=== PATIENT | female | born 1985 | race Caucasian/White ===

== ENCOUNTER 2023-06-16 08:51 | Observation (INO) ==
--- OUTSIDE RECORDS SUMMARY | 2023-06-16 08:56 | External Medical Summary | Continuity of Care Document ---
Author Name Unknown Organization [facility] [address] Address [address] [place], [place] [id number] Care Team Providers Care Compatibility Test Engineer Name Role Phone Eloise Dior Primary Care Physician [phone] [id number] Date[facility]s): 06/11/23 - 06/11/23 [facility] [address], [address] [place] [address] [phone] Encounter Diagnosis Palpitation(Discharge Diagnosis) - 06/11/23 Discharge Disposition: Home or Self Care Attending Physician: MD Bright Dongsheng Allergies, Adverse Reactions, Alerts Substance Reaction Severity Status Bactrim rash Active Immunizations Given and Recorded Vaccine Date Status Refusal Reason influenza virus vaccine, inactivated 12/30/13 Christopher rded tetanus/diphtheria/pertuss, acel (Tdap) 09/25/10 R ecorded tetanus/diphtheria/pertuss, acel (Tdap) 07/17/05 R ecorded tetanus toxoids-diphtheria, Td (Adult) 06/08/99 Re corded hepatitis B adult vaccine 11/18/97 Recorded hepatitis B adult vaccine 06/09/97 Recorded hepatitis B adult vaccine 05/12/97 Recorded measles/mumps/rubella virus vaccine 05/12/97 Recor ded measles/mumps/rubella virus vaccine 01/27/85 Recor ded poliovirus vaccine, inactivated 10/31/88 Recorded poliovirus vaccine, inactivated 05/25/85 Recorded poliovirus vaccine, inactivated 03/03/84 Recorded poliovirus vaccine, inactivated 01/01/84 Recorded diphtheria/tetanus/pertuss, acel (DTaP) 10/31/88 R ecorded diphtheria/tetanus/pertuss, acel (DTaP) 09/07/85 R ecorded haemophilus b Vaccine Unspecified 04/26/86 Recorde d diphtheria/pertussis, whole cell/tetanus 08/25/84 Recorded diphtheria/pertussis, whole cell/tetanus 05/06/84 Recorded diphtheria/pertussis, whole cell/tetanus 03/03/84 Recorded Medications Ortho Tri-Cyclen Start: 06/03/19 15:49:00 EDT Start Date: 06/03/19 Status: Ordered valACYclovir 1 g oral tablet Start: 12/11/22 13:38:00 EDT, See Instructions, Disp# 20 tab, Refills: 2, TAKE 2 TABLETS BY MOUTH EVERY 12 HOURS FOR 1 DAY DIRECTED, Pharmacy: [id number] Start Date: 12/11/22 Status: Ordered Problem List Condition Confirmation Course Effective Dates Status Health St atus Informant Herpes simplex labialis Confirmed Active Diagnosis Diagnosis Type Effective Dates Health Status Clini rafi Service Informant Palpitation Discharge Diagnosis 06/11/23 Non-Specified Procedures Procedure Date Related Diagnosis Body Site Status US kidneys 1 03/30/14 Completed wisdom teeth 2005 Completed appendectomy, laparscopic 2001 Completed 1Normal Social History Social History Type Response Tobacco Former smoker, Cigar ettes, .3 per day. 2 year(s). Started age 13 Years. Stopped age 15 Years. Smoking Status Never smoked cigaret guanaco Sex Patient Care team information Care Team Personnel Name: DO Dior Alonna Paige Position: Resident Member Role: Primary Care Provider Address: Address: [address] [facility] [address] [place] [address] Care Team Related Persons Name: BRITTANIE HENNING Address: home [address], [place] [id number] Name: BRITTANIE HENNING Address: [facility] Address: home [address], [place] [id number]
[2023-06-16] MEDS: SODIUM CHLORIDE 0.9% 500 ML IV STA (09:17)
--- NOTE | 2023-06-16 09:21 | Emergency Department Note ---
Impression & Plan Palpitations, Tachycardia, Prolonged QT interval ED Provider Note NAME: RANJAN HENNING AGE: 37 SEX: F : 1985 ARRIVES VIA: Walk-In INFORMANT: [Patient] ED PROVIDER(S): [Gabino Marquis MD] CHIEF COMPLAINT: Chest pain HISTORY OF PRESENT ILLNESS: The patient is a 37-year-old female who states this is her third visit for palpitations. She was seen first in [place] and then in this ER a week ago. She has worn a Holter monitor and has an appointment in 3 days to have her results explained. The patient states that today, about 3 hours ago, she noticed her heart was racing. The sensation would come and go. She has noticed some heaviness to her chest at times, no shortness of breath. No syncope. Because of the persistent symptoms today, because of the chest heaviness, she presents for evaluation. PMHx/PSHx/Social Hx: See Below PHYSICAL EXAM: GENERAL: Patient is in no acute distress. HEENT: No acute trauma, normocephalic atraumatic, mucous membranes moist, no nasal congestion. NECK: No stridor, no adenopathy, no meningismus, trachea is midline. LUNGS: Clear to auscultation bilaterally, no wheeze, no rhonchi, breath sounds equal. HEART: Subtle systolic murmur, mildly tachycardic, regular rhythm. ABDOMEN: Soft, nontender, no peritonitis. EXTREMITIES: No cyanosis, full range of motion of all the joints without pain or difficulty. NEUROLOGIC: Oriented x 3, no acute motor or sensory deficits, no focal weakness. SKIN: No jaundice, no diaphoresis. DIFFERENTIAL DIAGNOSIS: SVT, A-fib or a flutter, V. tach, thyroid disorder, electrolyte imbalance, PE, among others. EMERGENCY DEPARTMENT PROCEDURES: MEDICAL DECISION MAKING: There is no leukocytosis or worrisome anemia. There is a normal platelet count. No renal failure or significant electrolyte abnormality. No concerning liver enzyme elevation. No evidence for pancreatitis. Patient appears to be in a euthyroid state. testing was negative. ECG showed a sinus rhythm, no ischemia or dysrhythmia. QTc was read as prolonged at 689. Cardiac enzyme testing x 1 was not consistent with acute cardiac injury. Chest x-ray did not show mediastinal widening, pneumonia or pneumothorax. Chest CT did not show pneumonia or PE. During the patient stay, she was at times tachycardic although the rhythm was sinus. No dysrhythmia noted on the monitor. The patient did receive 500 cc of IV saline for hydration. She was given IV magnesium to boost this value. I discussed the case with cardiology, monitoring in the hospital was felt warranted/reasonable given her persistent symptoms and the potential prolonged QT interval on ECG. I did speak with the patient and case management, the on-call hospitalist was consulted. Prior/Outside records/notes reviewed: ED visit note from 06/09/2023 discussing her presentation, results and the plan moving forward. ECG per my interpretation: Indication was palpitations. The ECG shows a normal sinus rhythm with a rate of 98. The QTc was prolonged at 689. There was diffuse nonspecific ST change. No ST elevation. No PVCs. Continuous Cardiac Monitoring per my interpretation: An order was placed for continuous cardiac monitoring. The monitor shows a rate of 107 with sinus tachycardia. Imaging/x-ray results per my interpretation: Chest x-ray does not show mediastinal widening, pneumonia or pneumothorax. Chronic Medical/Social conditions affecting care: Care/Management discussed with: Cardiology-Dr. Dumont. Case management and the on-call hospitalist. Level of care consideration(s): After review of the information above and other included data: --I believe the patient requires escalation of care to admission DISPOSITION: Admission Past Med/Surg History Medical History Palpitations Social History Smoking Status: Never smoker Preferred Language: Indonesian Feels Safe at Home: Yes Allergies Allergies Allergy/AdvReac Type Severity Reaction Status Date / Time sulfamethoxazole Allergy Intermediate Unknown Unverified 06/09/23 10:46 [From Bactrim] trimethoprim [From Bactrim] Allergy Intermediate Unknown Unverified 06/09/23 10:46 Home Meds Home Medications Medication Instructions Recorded Confirmed norgestimate-ethinyl estradiol 1 tab PO HS 06/09/23 06/16/23 0.18 mg/0.215mg/0.25mg-35 mcg(28)tablet Results & Data (ED) Vital Signs Vital Signs - 24 hr 06/16/23 08:51 06/16/23 08:51 06/16/23 08:51 Temperature 36.9 C Temperature Source Temporal Artery Scan Pulse Rate 85 Pulse Rate from SpO2 Sensor Respiratory Rate 18 18 Blood Pressure 133/90 Blood Pressure Mean 104 Pulse Oximetry 99 Oxygen Delivery Method Room Air Sepsis Recent Fever Within 48 Hours No Sepsis New/Unexplained Change in Mental Status N/A Sepsis Action Taken by Nursing No Action Required 06/16/23 09:02 06/16/23 09:22 06/16/23 09:24 Temperature Temperature Source Pulse Rate 87 76 76 Pulse Rate from SpO2 Sensor 75 Respiratory Rate 16 22 Blood Pressure Blood Pressure Mean Pulse Oximetry 96 99 Oxygen Delivery Method Sepsis Recent Fever Within 48 Hours Sepsis New/Unexplained Change in Mental Status Sepsis Action Taken by Nursing 06/16/23 09:30 06/16/23 09:40 06/16/23 09:50 Temperature Temperature Source Pulse Rate 76 74 66 Pulse Rate from SpO2 Sensor 74 74 67 Respiratory Rate 22 16 16 Blood Pressure Blood Pressure Mean Pulse Oximetry 100 100 100 Oxygen Delivery Method Sepsis Recent Fever Within 48 Hours Sepsis New/Unexplained Change in Mental Status Sepsis Action Taken by Nursing 06/16/23 10:00 06/16/23 10:30 06/16/23 10:40 Temperature Temperature Source Pulse Rate 67 64 60 Pulse Rate from SpO2 Sensor 67 65 60 Respiratory Rate 13 13 14 Blood Pressure Blood Pressure Mean Pulse Oximetry 100 100 100 Oxygen Delivery Method Sepsis Recent Fever Within 48 Hours Sepsis New/Unexplained Change in Mental Status Sepsis Action Taken by Nursing 06/16/23 10:50 06/16/23 11:00 Temperature Temperature Source Pulse Rate 65 65 Pulse Rate from SpO2 Sensor 64 64 Respiratory Rate 20 17 Blood Pressure Blood Pressure Mean Pulse Oximetry 100 100 Oxygen Delivery Method Sepsis Recent Fever Within 48 Hours Sepsis New/Unexplained Change in Mental Status Sepsis Action Taken by [facility] Medications Current Medication List: was personally reviewed by me Laboratory Data Attestation: I reviewed the patient's lab results. 06/16/23 09:15 06/16/23 09:15 Lab Results 06/16/23 Range/Units 09:15 WBC 9.86 (4.8-10.8) K/ul RBC 5.13 (4.20-5.40) M/uL Hgb 14.5 (12.0-16.0) g/dl Hct 43.8 (37.0-47.0) % MCV 85.4 (80.0-100.0) fL MCH 28.3 (25.0-34.0) pg MCHC 33.1 (32.0-36.0) g/dL RDW Std Deviation 35.6 L (36.4-46.3) fL RDW Coeff of Arin 11.5 (11.5-14.5) % Plt Count 265 (130-400) K/uL MPV 10.5 (9.4-12.4) fL Immature Gran % (Auto) 0.2 % Neut % (Auto) 74.4 % Lymph % (Auto) 19.9 % Woodson % (Auto) 4.8 % Eos % (Auto) 0.4 % Baso % (Auto) 0.3 % Neut # (Auto) 7.34 H (1.40-6.50) K/uL Lymph # (Auto) 1.96 (1.20-3.40) K/uL Woodson # (Auto) 0.47 (0.11-0.59) K/uL Eos # (Auto) 0.04 (0.00-0.50) K/uL Baso # (Auto) 0.03 (0.00-0.20) K/uL Immature Gran # (Auto) 0.02 (0.01-0.20) K/uL Sodium 136 (136-145) mmol/L Potassium 3.7 (3.5-5.1) mmol/L Chloride 104 (98-107) mmol/L Carbon Dioxide 26 (21-32) mmol/L Anion Gap 6 (3-11) BUN 11 (6-23) mg/dl Creatinine 0.69 (0.6-1.2) mg/dl Est Cr Clr Drug Dosing 94.5 ml/min Est GFR ( Amer) 127.1 ml/min Est GFR (Non-Af Amer) 109.7 ml/min BUN/Creatinine Ratio 15.9 (10-20) Glucose 131 H (70-99(Fasting)) mg/dl Calcium 9.5 (8.6-10.3) mg/dl Magnesium 1.8 (1.7-2.4) mg/dl Total Bilirubin 0.5 (0.2-1.0) mg/dl AST 11 L (13-39) U/L ALT 10 (7-52) U/L Alkaline Phosphatase 43 (34-104) U/L Troponin I High Sens 3.6 (0-14) pg/ml Total Protein 7.7 (6.0-8.3) gm/dl Albumin 4.5 (3.4-5.0) gm/dl Globulin 3.2 (2.5-4.0) gm/dl Albumin/Globulin Ratio 1.4 (0.9-2) Lipase 17 (11-82) U/L TSH 1.717 (0.300-4.500) uIu/ml HCG, Qual Negative (Negative) Administered Medications Magnesium Sulfate/Dextrose (Magnesium Sulfate / D5w) 1 gm in 100 mls @ 50 mls/hr IV Q2H ROBERT Stop: 06/16/23 15:44 Last Admin: 06/16/23 14:46 Dose: 50 mls/hr Documented By: Infusion: 06/16/23 14:40 Dose: Infused Documented By: Admin: 06/16/23 13:09 Dose: 50 mls/hr Documented By: AIDE Discontinued Medications Sodium Chloride (Nss) 500 mls @ 999 mls/hr IV .Q31M STA Stop: 06/16/23 09:32 Last Infusion: 06/16/23 09:48 Dose: Infused Documented By: Admin: 06/16/23 09:17 Dose: 999 mls/hr Documented By: PHYLLIS Magnesium Sulfate/Dextrose (Magnesium Sulfate / D5w) 1 gm in 100 mls @ 100 mls/hr IV NOW STA Stop: 06/16/23 11:00 Last Infusion: 06/16/23 11:51 Dose: Infused Documented By: Admin: 06/16/23 10:37 Dose: 100 mls/hr Documented By: ABBY Ioversol (Optiray 320 125ml) 58 ml IV ONCE ONE Stop: 06/16/23 10:18 Last Admin: 06/16/23 10:18 Dose: 58 ml Documented By: SAMUEL Potassium Chloride (Potassium Chloride Crtab 20 Meq Tabcr) 40 meq PO NOW STA Stop: 06/16/23 11:38 Last Admin: 06/16/23 13:09 Dose: 40 meq Documented By: AIDE Imaging Data Radiologist's Impression: Chest X-Ray 06/16/23 09:02 SINGLE VIEW CHEST CLINICAL HISTORY: Atypical chest pain FINDINGS: An AP, portable, upright chest radiograph is compared to study dated 06/09/2023. The cardiomediastinal silhouette is unremarkable. The lungs and pleural spaces are clear. No pneumothorax is seen. The bony thorax is grossly intact. IMPRESSION: No active disease in the chest. ACT 112: Negative or not required by law. Electronically signed by: Gabino Hargrove M.D. 06/16/2023 9:30 AM Chest CTA 06/16/23 09:15 CT ANGIOGRAM OF THE CHEST CLINICAL HISTORY: Atypical chest pain. COMPARISON STUDY: Chest x-ray dated 06/16/2023. TECHNIQUE: Following the IV administration of 58 cc of Optiray 320, CT angiogram of the chest was performed from the upper abdomen to the thoracic inlet utilizing the pulmonary embolus protocol. Images are reviewed in the axial, sagittal, and coronal planes. 3-D MIPS images are created and assessed. IV contrast was administered without complication. A dose lowering technique was utilized adhering to the principles of ALARA. CT DOSE: 414.37 mGy.cm FINDINGS: Thyroid: Imaged portions of the thyroid gland are normal in size and attenuation. Thoracic aorta: The thoracic aorta is normal in caliber and demonstrates standard 3-vessel arch anatomy. No dissection is seen. Pulmonary vasculature: The pulmonary trunk is normal in caliber. There are no filling defects identified in main, lobar, or segmental pulmonary branches to suggest pulmonary embolus. Heart: The heart is normal in size and without pericardial effusion. Lungs and pleural spaces: There is no airspace consolidation or pleural effusion. The trachea and central airways are clear. A low suspicion 4 mm pleural-based nodule is seen in the right lower lobe lung fissure on image #85. This is Doppler sonograms. Mediastinum: There is no mediastinal lymphadenopathy. Chanelle: Clear. Axillae: There is no axillary lymphadenopathy. Upper abdomen: Partially visualized upper abdominal viscera is within normal limits. Skeletal structures: No lytic or blastic bony lesions are seen. IMPRESSION: 1. There is no evidence of pulmonary embolus in the main, lobar, or segmental pulmonary arteries. 2. The lungs are clear. ACT 112: Negative or not required by law. Electronically signed by: Gabino Hargrove M.D. 06/16/2023 10:31 AM Discharge Plan Visit Data Chief Complaint: Chest Pain Stated Complaint: RAPID HEART RATE,TIGHTNESS OF CHEST ED Provider: Gabino Marquis Discharge Problem: Palpitations, Tachycardia, Prolonged QT interval Patient Disposition: Admitted As Inpatient Condition: Good Discharge Instructions Interventions: ED Discharge Assessment Last Done: 06/16/23 15:05
--- NOTE | 2023-06-16 09:31 | XRay Report ---
SINGLE VIEW CHEST CLINICAL HISTORY: Atypical chest pain FINDINGS: An AP, portable, upright chest radiograph is compared to study dated 06/09/2023. The cardiom ediastinal silhouette is unremarkable. The lungs and pleural spaces are clear. No pneumothorax is see n. The bony thorax is grossly intact. IMPRESSION: No active disease in the chest. ACT 112: Negative or not required by law. Electronically signed by: Gabino Hargrove M.D. 06/16/2023 9:30 AM
[2023-06-16 09:37] LABS: Basophils # (auto) 0.03 K/uL (0.00-0.20); Basophils % (auto) 0.3 %; Eosinophils # (auto) 0.04 K/uL (0.00-0.50); Eosinophils % (auto) 0.4 %; Hematocrit (blood only) 43.8 % (37.0-47.0); Hemoglobin 14.5 g/dl (12.0-16.0); Immature Granulocytes # (auto) 0.02 K/uL (0.01-0.20); Immature Granulocytes % (auto) 0.2 %; Lymphocytes # (auto) 1.96 K/uL (1.20-3.40); Lymphocytes % (auto) 19.9 %; Mean Corpuscular Hemoglobin 28.3 pg (25.0-34.0); Mean Corpuscular Hgb Conc 33.1 g/dL (32.0-36.0); Mean Corpuscular Volume 85.4 fL (80.0-100.0); Mean Platelet Volume 10.5 fL (9.4-12.4); Monocytes # (auto) 0.47 K/uL (0.11-0.59); Monocytes % (auto) 4.8 %; Neutrophils # (auto) 7.34 K/uL (1.40-6.50); Neutrophils % (auto) 74.4 %; Platelet Count 265 K/uL (130-400); RDW Coefficient of Variation 11.5 % (11.5-14.5); RDW Standard Deviation 35.6 fL (36.4-46.3); Red Blood Count 5.13 M/uL (4.20-5.40); White Blood Count 9.86 K/ul (4.8-10.8)
[2023-06-16 09:55] LABS: Albumin Globulin Ratio 1.4 (0.9-2); Albumin Level 4.5 gm/dl (3.4-5.0); BUN Creatinine Ratio 15.9 (10-20); Bilirubin,Total 0.5 mg/dl (0.2-1.0); Calcium 9.5 mg/dl (8.6-10.3); Creatinine Clr Calc Pharmacy 94.5 ml/min; Est GFR (African American) 127.1 ml/min; Est GFR (Non-African American) 109.7 ml/min; Globulin 3.2 gm/dl (2.5-4.0); Magnesium 1.8 mg/dl (1.7-2.4); Potassium 3.7 mmol/L (3.5-5.1); Total Protein 7.7 gm/dl (6.0-8.3)
[2023-06-16 10:01] LABS: Troponin I High Sensitivity 3.6 pg/ml (0-14)
[2023-06-16 10:11] LABS: Pregnancy Test, Serum Negative (Negative); Thyroid Stimulating Hormone 1.717 uIu/ml (0.300-4.500)
[2023-06-16] MEDS: OPTIRAY 320 125ml IV ONE (10:18)
--- NOTE | 2023-06-16 10:33 | CT Scan Report ---
CT ANGIOGRAM OF THE CHEST CLINICAL HISTORY: Atypical chest pain. COMPARISON STUDY: Chest x-ray dated 06/16/2023. TECHNIQUE: Following the IV administration of 58 cc of Optiray 320, CT angiogram of the chest was per formed from the upper abdomen to the thoracic inlet utilizing the pulmonary embolus protocol. Images are reviewed in the axial, sagittal, and coronal planes. 3-D MIPS images are created and assessed. IV contrast was administered without complication. A dose lowering technique was utilized adhering to the principles of ALARA. CT DOSE: 414.37 mGy.cm FINDINGS: Thyroid: Imaged portions of the thyroid gland are normal in size and attenuation. Thoracic aorta: The thoracic aorta is normal in caliber and demonstrates standard 3-vessel arch anato my. No dissection is seen. Pulmonary vasculature: The pulmonary trunk is normal in caliber. There are no filling defects identif ied in main, lobar, or segmental pulmonary branches to suggest pulmonary embolus. Heart: The heart is normal in size and without pericardial effusion. Lungs and pleural spaces: There is no airspace consolidation or pleural effusion. The trachea and annika tral airways are clear. A low suspicion 4 mm pleural-based nodule is seen in the right lower lobe brandon g fissure on image #85. This is Doppler sonograms. Mediastinum: There is no mediastinal lymphadenopathy. Chanelle: Clear. Axillae: There is no axillary lymphadenopathy. Upper abdomen: Partially visualized upper abdominal viscera is within normal limits. Skeletal structures: No lytic or blastic bony lesions are seen. IMPRESSION: 1. There is no evidence of pulmonary embolus in the main, lobar, or segmental pulmonary arteries. 2. The lungs are clear. ACT 112: Negative or not required by law. Electronically signed by: Gabino Hargrove M.D. 06/16/2023 10:31 AM
[2023-06-16] MEDS: MAGNESIUM SULFATE / D5W 1 GM/100 ML BAG IV STA (10:37)
--- NOTE | 2023-06-16 11:41 | History & Physical Report ---
Date of Service June 16, 2023 Assessment & Plan (1) Palpitations: Plan: -Admit to the PCU on tele -Currently stable and asymptomatic -Presented after having further episodes of palpitations this am upon waking with associated chest tightness -Has been occure intermittently over the past 3 weeks -Did just have a holter monitor over approximately 48 hours this past week >Does think she had at least one episode of palpitations with the monitor in place -State that she returned the Holter monitor on 06/12, has not received results -First [facility]iology appointment is not until July 16 -Does not drink excessive amounts of caffeine, denies the patient cons istently snoring at night or having episodes of apnea -Her workup thus far has been significant for low-normal mag and potassium levels -ECG today shows t-wave inversions in the anterior leads and possible QTc prolongation -Chest xray and CTA of the chest were negative for acute findings -Will continue to monitor on tele -Will replete mag to at least 2.0 and Potassium to at least 4.0 -Will obtain TTE for further assessment with her murmur on exam -Cardiology consulted -Regular diet -SCD's for DVT PPX -AM CBC, BMP, mag Plan The patient was discussed with Dr. Mota at the time of the admission History of Present Illness Chief Complaint: chest pain Primary Care Provider: DO Megan Pathak Adrien is a 37 year old female with a PMH significant for heart palpitations who presented to the [facility] ED on 06/16/23 with complaints of recurrent heart palpations and chest tightness. She remained stable while in the ED. Labs were significant for a mag of 1.8, potassium of 3.7, TSH and high sen trop WNL. Chest xray and CT angiogram of the chest were negative for acute findings. Compared to previous ECG's, the patient's ECG today shows a QTc of 689 with new T-wave inversions in the anterior leads. The ED spoke with [facility] who recommended the patient be monitoring on tele overnight for possible runs of torsades. The patient has been followed by [facility] for her recurrent palpitations. She had a holter monitor last week, which she turned back into the Cardiology office but has yet to receive results. Prior to admission the patient was given 500 mL NSS and 1gm IV mag-sulfate. At the time of the exam the patient was sitting in bed in no acute distress with her bedside. Has been experiencing intermittent episodes of heart palpitations over the past 3 weeks, denies a previous history of cardiac disease or abnormalities. States the first occurrence was when they were on Vacation. She states she did have some alcoholic drinks which contained energy drinks. She states, and her confirms that she does not usually drink energy drinks or consumes caffeine regularly. She may have 8 oz of coffee in the morning, she denies using any workup supplements. She does take OTC supplements for her joints. These episodes normally occur when she first wakes in the am, before getting out of bed. She does not typically experience these episodes during exertion and denies symptoms such as lightheadedness, dizziness, chest pain, or syncope. Please refer to Dr. Mota's attestation for any changes to the treatment plan Allergies Allergy/AdvReac Type Severity Reaction Status Date / Time sulfamethoxazole Allergy Intermediate Unknown Unverified 06/09/23 10:46 [From Bactrim] trimethoprim [From Bactrim] Allergy Intermediate Unknown Unverified 06/09/23 10:46 Home Medications Medication Instructions Recorded Confirmed Type norgestimate-ethinyl estradiol 1 tab PO HS 06/09/23 06/16/23 History 0.18 mg/0.215mg/0.25mg-35 mcg(28)tablet Past Med/Surg History Social History Smoking Status: Never smoker Preferred Language: Macedonian Feels Safe at Home: Yes Physical Exam Physical Exam: Physical Exam: General: In no acute distress, stated age, well-nourished, good hygiene HEENT: Normocephalic, atraumatic, no scleral icterus, pupils around round, symmetrical, and reactive to light, moist mucus membranes, trachea midline, no thyromegaly Chest/Pulm: No respiratory distress, symmetrical chest expansion, clear breath sounds throughout Cardiac: RRR, 2/6 systolic murmur noted in the right and left upper sternal borders Abdomen: Negative for ascites and bruising, normoactive bowel sounds, soft, non-tender to palpation throughout Musculoskeletal: Symmetrical and without signs of acute trauma, upper and lower extremities with full ROM, no atrophy, spasticity, or flaccidity Extremities: Radial, dorsalis pedis, and posterior tibial pulses are intact and symmetrical, no edema noted in the BL LE's Skin: Warm, dry, no rashes , lesions, or scars noted Neuro: Alert and oriented to person, place, month, year, and president, no focal defects, no tremors noted Psych: No acute distress, calm and cooperative during the exam Results & Data Results & Data Vital Signs (Past 12 Hours) Vital Signs Temp Pulse Resp BP Pulse Ox O2 Del Method 06/16/23 09:24 76 06/16/23 09:02 87 16 96 06/16/23 08:51 18 06/16/23 08:51 Room Air 06/16/23 08:51 36.9 C 85 18 133/90 99 Laboratory Results Abnormal lab results 06/16/23 Range/Units 09:15 RDW Std Deviation 35.6 L (36.4-46.3) fL Neut # (Auto) 7.34 H (1.40-6.50) K/uL Glucose 131 H (70-99(Fasting)) mg/dl AST 11 L (13-39) U/L Diagnostic Findings Chest X-Ray 06/16/23 09:02 SINGLE VIEW CHEST CLINICAL HISTORY: Atypical chest pain FINDINGS: An AP, portable, upright chest radiograph is compared to study dated 06/09/2023. The cardiomediastinal silhouette is unremarkable. The lungs and pleural spaces are clear. No pneumothorax is seen. The bony thorax is grossly intact. IMPRESSION: No active disease in the chest. ACT 112: Negative or not required by law. Electronically signed by: Gabino Hargrove M.D. 06/16/2023 9:30 AM Chest CTA 06/16/23 09:15 CT ANGIOGRAM OF THE CHEST CLINICAL HISTORY: Atypical chest pain. COMPARISON STUDY: Chest x-ray dated 06/16/2023. TECHNIQUE: Following the IV administration of 58 cc of Optiray 320, CT angiogram of the chest was performed from the upper abdomen to the thoracic inlet utilizing the pulmonary embolus protocol. Images are reviewed in the axial, sagittal, and coronal planes. 3-D MIPS images are created and assessed. IV contrast was administered without complication. A dose lowering technique was utilized adhering to the principles of ALARA. CT DOSE: 414.37 mGy.cm FINDINGS: Thyroid: Imaged portions of the thyroid gland are normal in size and attenuation. Thoracic aorta: The thoracic aorta is normal in caliber and demonstrates standard 3-vessel arch anatomy. No dissection is seen. Pulmonary vasculature: The pulmonary trunk is normal in caliber. There are no filling defects identified in main, lobar, or segmental pulmonary branches to suggest pulmonary embolus. Heart: The heart is normal in size and without pericardial effusion. Lungs and pleural spaces: There is no airspace consolidation or pleural effusion. The trachea and central airways are clear. A low suspicion 4 mm pleural-based nodule is seen in the right lower lobe lung fissure on image #85. This is Doppler sonograms. Mediastinum: There is no mediastinal lymphadenopathy. Chanelle: Clear. Axillae: There is no axillary lymphadenopathy. Upper abdomen: Partially visualized upper abdominal viscera is within normal limits. Skeletal structures: No lytic or blastic bony lesions are seen. IMPRESSION: 1. There is no evidence of pulmonary embolus in the main, lobar, or segmental pulmonary arteries. 2. The lungs are clear. ACT 112: Negative or not required by law. Electronically signed by: Gabino Hargrove M.D. 06/16/2023 10:31 AM ECG Additional Comments: Normal sinus rhythm Possible Left atrial enlargement T wave abnormality, consider anterior ischemia Prolonged QT Abnormal ECG When compared with ECG of 09-JUN-2023 11:51, T wave inversion now evident in Anterior leads QT has lengthened Code Status & VTE Plan Code Status Full code VTE Prophylaxis Plan VTE Prophylaxis will be ordered: Yes Supervising Physician Co-Signing Physician Notes Patient seen and examined, chart reviewed, case discussed with Donato Yan PA-C and I agree with the assessment and plan as above except as otherwise noted Labs and images reviewed Megan is a 37-year-old female who is on norgestimateethinyl estradiol OCP otherwise on no medications, who takes a multivitamin and fish oil otherwise takes no rskp-dxt-flifjut vitamins, 1 cup of coffee max intermittently, and occasionally uses a protein supplement but with no preworkout powders or other additives who presents with episodic palpitations and a long QT. She has had multiple episodes ranging from no episodes in a day to several, which tend to occur in the morning and occur prior to her standing up out of bed. These feel like palpitations in her chest. She has not had lightheadedness, dizziness, syncope, presyncope. She does feel anxious when these occur, but notes while she does have anxiety at baseline thinks the palpitations make her anxious rather than the palpitations being precipitated by anxiety/panic. She had a Holter monitor with [facility] as an outpatient, do not have records of this but these are pending. She has a systolic murmur on bedside exam, echo is pending. EKG is with significantly prolonged QT of 406. EKG on admission reporting QT 540/QTc 689, manually counting appears to be approximately 480 although somewhat difficult to measure due to low amplitude T waves. Magnesium and potassium supplementation ordered to optimize to goal levels of 2.0/4.0. CTA is with no abnormalities/no PE. Given recurrent symptoms, prolonged QT will be admitted for telemetry monitoring on PCU, electrolyte optimization, echo to evaluate murmur and underlying function, and Holter report review. She is hemodynamically stable and in no distress at bedside. PG Care Time/CCT Total # of Minutes Spent Total Time Spent with Patient: Total time spent is greater than 50% in coordination of care (as documented) at patient's floor/unit and/or counseling patient: [place] [address] INT INP/OBS CARE 3/75MIN Patient Type New History Comprehensive Exam Comprehensive Medical Decision Making High Complexity Diagnoses Palpitations R00.2
[2023-06-16] MEDS ORDERED: ACETAMINOPHEN 325 MG TAB PO PRN (12:04)
[2023-06-16] MEDS: POTASSIUM CHLORIDE CRTAB 20 MEQ TABCR PO STA (13:09)
[2023-06-16] MEDS: MAGNESIUM SULFATE / D5W 1 GM/100 ML BAG IV SCH (13:09)
[2023-06-16] MEDS ORDERED: ORAL CONTRACEPTIVE~ORDER AWAITING ACTION SCH (16:00)
--- NOTE | 2023-06-16 16:53 | XCELERA ---
[id number]
[2023-06-17 06:09] LABS: Basophils # (auto) 0.03 K/uL (0.00-0.20); Basophils % (auto) 0.3 %; Eosinophils # (auto) 0.04 K/uL (0.00-0.50); Eosinophils % (auto) 0.3 %; Hematocrit (blood only) 41.3 % (37.0-47.0); Hemoglobin 13.5 g/dl (12.0-16.0); Immature Granulocytes # (auto) 0.05 K/uL (0.01-0.20); Immature Granulocytes % (auto) 0.4 %; Lymphocytes # (auto) 2.13 K/uL (1.20-3.40); Lymphocytes % (auto) 17.8 %; Mean Corpuscular Hemoglobin 27.8 pg (25.0-34.0); Mean Corpuscular Hgb Conc 32.7 g/dL (32.0-36.0); Mean Corpuscular Volume 85.2 fL (80.0-100.0); Mean Platelet Volume 10.9 fL (9.4-12.4); Monocytes # (auto) 0.76 K/uL (0.11-0.59); Monocytes % (auto) 6.3 %; Neutrophils # (auto) 8.96 K/uL (1.40-6.50); Neutrophils % (auto) 74.9 %; Platelet Count 258 K/uL (130-400); RDW Coefficient of Variation 11.5 % (11.5-14.5); RDW Standard Deviation 35.5 fL (36.4-46.3); Red Blood Count 4.85 M/uL (4.20-5.40); White Blood Count 11.97 K/ul (4.8-10.8)
[2023-06-17 06:36] LABS: BUN Creatinine Ratio 12.5 (10-20); Creatinine Clr Calc Pharmacy 116.5 ml/min; Est GFR (African American) 136.1 ml/min; Est GFR (Non-African American) 117.5 ml/min; Magnesium 2.1 mg/dl (1.7-2.4); Potassium 4.1 mmol/L (3.5-5.1)
--- NOTE | 2023-06-17 08:54 | Cardiology Consultation ---
Date of Consultation June 17, 2023 Assessment & Plan (1) Prolonged QT interval: (2) Palpitations: Plan 1. Prolonged QT: I do not believe her QT is prolonged, it is a little hard to define the end of the T wave but I believe it to be normal. I would not treat her as long QT. 2. Palpitations: Her palpitations seem to correlate with sinus tachycardia from the recordings we have, this can be confirmed on the Holter monitor which is pending. Her P wave morphology looks normal on telemetry and the heart rate curve does not appear to be an ectopic atrial rhythm or a reentrant rhythm such as sinus node reentry. I think it is a somewhat rapid sinus rate, but not terribly rapid and not generally concerning that I can see. I did tell her that it could be treated if it turns out to be sinus tachycardia (based on Holter monitoring), for that I would use beta-blockers, but I did tell her I would only do that to treat symptoms, I do not see any necessity to treat her rhythm other than symptoms. I recommended that she keep her appointment in several days with her PCP and she has a cardiology appointment scheduled in early July, she may or may not want to keep that appointment, I will leave that up to her and her PCP. History of Present Illness Reason for Consultation: Palpitations, tachycardia, questionable long QT Attending Physician: Real Medina MD History of Present Illness This is a 37-year-old woman who has had several weeks of palpitations, she initially went to an emergency room in [place] and had a negative evaluation. She had another episode of palpitations on June 09, 2023 and presented to the emergency room here, here she had sinus tachycardia with a reported long QT (although I think that is incorrect, I believe her QT is normal). Additional workup was negative. It was recommended that she have an ambulatory monitor and she was discharged. She then presented to the emergency room again on June 16, 2023, she evidently has an appointment coming up to have that reviewed but the monitor has been sent back and she is no longer wearing it. It is not clear whether she had any of her typical palpitations while wearing the monitor. I discussed her symptoms with her, it is a sensation of a rapid heart rate which occurs quite quickly and resolves fairly slowly and can last hours. She does not recall having it historically but also does not recall very rapid heart rates, she feels the heart rate can be 90-100 when she becomes aware of it. She does not recall ever having a heart rate of more than 120. She did have symptoms during the night consistent with her typical rapid heart rate. She might have some type of visual symptoms when she has the rapid heart rate but does not have presyncope, shortness of breath or other hemodynamic symptoms. Allergies Allergy/AdvReac Type Severity Reaction Status Date / Time sulfamethoxazole Allergy Intermediate Unknown Unverified 06/09/23 10:46 [From Bactrim] trimethoprim [From Bactrim] Allergy Intermediate Unknown Unverified 06/09/23 10:46 Home Medications Medication Instructions Recorded Confirmed Type norgestimate-ethinyl estradiol 1 tab PO HS 06/09/23 06/16/23 History 0.18 mg/0.215mg/0.25mg-35 mcg(28)tablet Patient History Medical History Palpitations Social History Smoking Status: Former smoker Hx Alcohol Use: Yes Hx Substance Use: No Preferred Language: Chinese Communication Ability: Effective Rn Imcu Required: Yes Beliefs That Will Affect Care: None Current Living Situation: Family Feels Safe at Home: Yes Review of Systems Review of Systems: Review of systems is notable as in the HPI Physical Exam Physical Exam: Constitutional: Alert, cooperative and in no distress. HEENT: Unremarkable Neck: No jugular venous distention, carotid pulses are normal and equal bilaterally without bruits. Pulmonary: Clear to auscultation bilaterally. Cardiac: Regular rhythm with no murmur, gallop or rub. Abdomen: Soft, nontender with normal bowel sounds. Extremities: No edema. Distal pulses intact. Neurologic: No focal findings. Gait is steady. Skin: No rash, ecchymoses or petechiae. Results & Data Vital Signs (Past 12 Hours) Vital Signs Temp Pulse Pulse Resp BP Pulse Ox O2 Del Method 06/17/23 08:41 80 06/17/23 07:43 36.6 C 94 H 19 134/90 98 Room Air 06/17/23 03:09 36.5 C 95 H 17 151/87 H 97 Room Air 06/16/23 23:21 36.7 C 84 16 152/89 H 96 Room Air 06/16/23 23:16 80 06/16/23 21:30 71 06/16/23 21:11 36.9 C 98 H 17 154/97 H 98 Room Air Laboratory Results Cardiac Enzymes 06/16/23 Range/Units 09:15 AST 11 L (13-39) U/L Troponin I High Sens 3.6 (0-14) pg/ml CBC 06/16/23 06/17/23 Range/Units 09:15 05:25 WBC 9.86 11.97 H (4.8-10.8) K/ul RBC 5.13 4.85 (4.20-5.40) M/uL Hgb 14.5 13.5 (12.0-16.0) g/dl Hct 43.8 41.3 (37.0-47.0) % Plt Count 265 258 (130-400) K/uL Neut # (Auto) 7.34 H 8.96 H (1.40-6.50) K/uL Lymph # (Auto) 1.96 2.13 (1.20-3.40) K/uL [place] # (Auto) 0.47 0.76 H (0.11-0.59) K/uL Eos # (Auto) 0.04 0.04 (0.00-0.50) K/uL Baso # (Auto) 0.03 0.03 (0.00-0.20) K/uL Comprehensive Metabolic Panel 06/16/23 06/17/23 Range/Units 09:15 05:25 Sodium 136 136 (136-145) mmol/L Potassium 3.7 4.1 (3.5-5.1) mmol/L Chloride 104 106 (98-107) mmol/L Carbon Dioxide 26 24 (21-32) mmol/L BUN 11 7 (6-23) mg/dl Creatinine 0.69 0.56 L (0.6-1.2) mg/dl Glucose 131 H 102 H (70-99(Fasting)) mg/dl Calcium 9.5 9.0 (8.6-10.3) mg/dl AST 11 L (13-39) U/L ALT 10 (7-52) U/L Alkaline Phosphatase 43 (34-104) U/L Total Protein 7.7 (6.0-8.3) gm/dl Albumin 4.5 (3.4-5.0) gm/dl Intake and Output 06/16/23 06/17/23 06/17/23 22:59 06:59 14:59 Intake Total 250 / 1150 200 / 1150 Balance 250 / 1150 200 / 1150 Intake: IV 100 / 800 Magnesium Sulfate / D5w 1 gm In 100 / 200 100 ml @ 50 mls/hr IV Q2H ROBERT Rx#:[id number] Oral 150 / 350 200 / 350 Other: # Unmeasured Voids 1 1 Weight 60.4 kg 57.8 kg Weight Measurement Method [facility] Diagnostic Findings Telemetry: Sinus rhythm throughout, when she had symptoms during the night (2 to 3 AM) her heart rate did increase somewhat, a little over 100 maximum, P wave morphology looks normal on telemetry. An echocardiogram done June 16, 2023 shows normal left ventricular size and function with no valvular heart disease. It is normal. Review of her echocardiogram from June 09, 2023 at 09 32 was read as long QT, her T waves are very flat but in the leads that they can be clearly seen it is not prolonged. Review of her electrocardiogram from June 09, 2023 at 1151 shows more distinct T waves, and a QT interval which is not prolonged. Her electrocardiogram from June 16, 2023 at 0902 also shows very flat T waves but I believe the QT interval is not prolonged. PG Care Time/CCT Total # of Minutes Spent Total Time Spent with Patient: Total time spent is greater than 50% in coordination of care (as documented) at patient's floor/unit and/or counseling patient: Coding Level of Care Code 75717 OFFICE CONSULT LVL Diagnoses Prolonged QT interval R94.31 Palpitations R00.2
[2023-06-17 14:47] LABS: C Reactive Protein < 0.50 mg/dl (0-0.5)
[2023-06-17 14:49] LABS: Troponin I High Sensitivity 2.4 pg/ml (0-14)
[2023-06-17 16:28] LABS: Appearance Urine Clear (Clear); Bilirubin Urine Negative (Negative); Blood Urine Negative (Negative); Color Urine Yellow; Glucose Urine UA Negative (Negative); Ketones Urine Negative (Negative); Leukocyte Esterase Urine Negative (Negative); Nitrite Urine Negative (Negative); Protein Urine Negative (Negative); Specific Gravity Urine 1.007 (1.000-1.030); Urobilinogen Urine Negative (Negative)
--- NOTE | 2023-06-17 19:32 | Hospitalist Progress Note ---
Date of Service June 17, 2023 Assessment & Plan (1) Palpitations: Plan: thus far we have only seen sinus arrhythmia and sinus tach on monitor no PACs, no PVCs, no SVT seen no other more serious pathology seen on monitoring 48-hour Holter completed as outpatient last week - confirmed with [facility] that results are not available, likely available late this week or early next week has f/u with [facility] July 16 has f/u with [facility] on June 18 she had symptoms last pm about 2am-3am - sinus tach only on tele during that time period TSH wnl H/H stable; no anemia no pain no significant anxiety no PE echo with normal valves, normal EF, etc. etiology??? appreciate cardiology consultation see below re: chest heaviness (2) Chest heaviness: Plan: in the end may be 2nd to the sinus tach itself however, her EKG is not normal, and she has a strong family history of CAD as noted extensive discussion held with patient she is willing to undergo stress testing plan - NPO after MN tonight, exercise stress echo in am fortunately NO PEs on CTA chest no evidence of ACS based on troponins neg no evidence of pericarditis - no effusion on echo or CTA chest, sed rate/crp wnl, etc. nothing musculoskeletal present (3) Family history of coronary artery disease: Plan: father, PGM, etc (4) Abnormal EKG: Plan: diffuse nonspecific T wave changes (flattening) anterior leads and inferior leads see above some concern for QTc prolongation but Dr Dumont has seen and evaluated; QTc is normal length per his evaluation plan - exercise stress echo in am tomorrow (5) Leukocytosis: Plan: exact etiology uncertain no infectious symptoms sed rate/crp wnl no fevers u/a wnl urine HCG neg CTA chest neg for pneumonia simply repeat CBC in am Plan if stress echo is neg tomorrow can d/c home [facility] told me via [place] [facility] that if 48-hour holter is negative they can arrange 30-day event monitor Admission and Anticipated Discharge Date Admission Date: June 16, 2023 Subjective patient reports that with several of her palpitation episodes she has had chest "heaviness" the most recent episode was the AM of admission awoke about 6am and immediately experienced palpitations/racing heart and chest heaviness not a pain per se but a definite heavy feeling across much of the chest no associated dyspnea no associated diaphoresis no radiation of heaviness to arms, neck or back her father had coronary stents placed at about age 50 her PGM had CAD another family member on her father's side also had CAD none of her siblings have CAD to her knowledge she had a 48-hour Holter monitor completed last week I corresponded with Dr Mor Husain from [facility] (he would be the one receiving those results) and he reports the results of the Holter are not yet available patient states that last pm between 2am and 3am she had palpitations I looked at monitor and from that time period she had mild sinus tach, about 110-115 BPM she was awake during that time denies any recent illnesses denies anxiety denies weight loss denies excessive caffeine consumption Review of Systems Review of Systems: gen - no fevers or chills; good appetite cv - see HPI pulm - no cough or dyspnea or TORRES GI - no abd pains or N/V - no urinary symptoms skin - no tick bites Physical Exam Physical Exam: gen - NAD, very pleasant, WD/WN, not anxious skin - no rash neck - no JVD mouth - MMM heart - RRR, s1 s2, no murmur lungs - CTA b/l abd - soft NT ND BS+ ext - no edema vascular - pulses feet 2+ b/l; radial pulses 2+ b/l psych - NOT anxious Results & Data Results & Data Vital Signs (Past 12 Hours) Vital Signs Temp Pulse Pulse Resp BP Pulse Ox O2 Del Method 06/17/23 15:37 36.7 C 73 20 134/76 97 Room Air 06/17/23 10:47 36.8 C 73 19 151/87 H 99 Room Air 06/17/23 08:41 80 06/17/23 07:43 36.6 C 94 H 19 134/90 98 Room Air Laboratory Results Laboratory Results 06/16/23 06/17/23 06/17/23 09:15 05:25 10:20 WBC 9.86 11.97 H RBC 5.13 4.85 Hgb 14.5 13.5 Hct 43.8 41.3 MCV 85.4 85.2 MCH 28.3 27.8 MCHC 33.1 32.7 RDW Std Deviation 35.6 L 35.5 L RDW Coeff of Arin 11.5 11.5 Plt Count 265 258 MPV 10.5 10.9 Immature Gran % (Auto) 0.2 0.4 Neut % (Auto) 74.4 74.9 Lymph % (Auto) 19.9 17.8 Frederick % (Auto) 4.8 6.3 Eos % (Auto) 0.4 0.3 Baso % (Auto) 0.3 0.3 Neut # (Auto) 7.34 H 8.96 H Lymph # (Auto) 1.96 2.13 Frederick # (Auto) 0.47 0.76 H Eos # (Auto) 0.04 0.04 Baso # (Auto) 0.03 0.03 Immature Gran # (Auto) 0.02 0.05 ESR Sodium 136 136 Potassium 3.7 4.1 Chloride 104 106 Carbon Dioxide 26 24 Anion Gap 6 6 BUN 11 7 Creatinine 0.69 0.56 L Est Cr Clr Drug Dosing 94.5 116.5 Est GFR ( Amer) 127.1 136.1 Est GFR (Non-Af Amer) 109.7 117.5 BUN/Creatinine Ratio 15.9 12.5 Glucose 131 H 102 H Calcium 9.5 9.0 Magnesium 1.8 2.1 Total Bilirubin 0.5 AST 11 L ALT 10 Alkaline Phosphatase 43 Troponin I High Sens 3.6 C-Reactive Protein Total Protein 7.7 Albumin 4.5 Globulin 3.2 Albumin/Globulin Ratio 1.4 Lipase 17 TSH 1.717 HCG, Qual Negative Urine Color Yellow Urine Appearance Clear Urine pH 7.0 Ur Specific Mesa 1.007 Urine Protein Negative Urine Glucose (UA) Negative Urine Ketones Negative Urine Blood Negative Urine Nitrite Negative Urine Bilirubin Negative Urine Urobilinogen Negative Ur Leukocyte Esterase Negative 06/17/23 14:00 WBC RBC Hgb Hct MCV MCH MCHC RDW Std Deviation RDW Coeff of Arin Plt Count MPV Immature Gran % (Auto) Neut % (Auto) Lymph % (Auto) Frederick % (Auto) Eos % (Auto) Baso % (Auto) Neut # (Auto) Lymph # (Auto) Frederick # (Auto) Eos # (Auto) Baso # (Auto) Immature Gran # (Auto) ESR 5 Sodium Potassium Chloride Carbon Dioxide Anion Gap BUN Creatinine Est Cr Clr Drug Dosing Est GFR ( Amer) Est GFR (Non-Af Amer) BUN/Creatinine Ratio Glucose Calcium Magnesium Total Bilirubin AST ALT Alkaline Phosphatase Troponin I High Sens 2.4 C-Reactive Protein < 0.50 Total Protein Albumin Globulin Albumin/Globulin Ratio Lipase TSH HCG, Qual Urine Color Urine Appearance Urine pH Ur Specific Mesa Urine Protein Urine Glucose (UA) Urine Ketones Urine Blood Urine Nitrite Urine Bilirubin Urine Urobilinogen Ur Leukocyte Esterase Diagnostic Findings EKGs - multiple - NSR, nonspecific T wave changes (flattening) anteriorly and inferiorly; QTc - using lead I or II - QT is about 8 small boxes, thus QTc using HR of ~100 is about 420msec PG Care Time/CCT Total # of Minutes Spent Total Time Spent with Patient: Total time spent is greater than 50% in coordination of care (as documented) at patient's floor/unit and/or counseling patient: Coding Level of Care Code 24069 SUB INP/OBS CARE 3/50MIN Diagnoses Palpitations R00.2 Chest heaviness R07.89 Family history of coronary artery disease Z82.49 Abnormal EKG R94.31 Leukocytosis D72.829
[2023-06-18] MEDS: LORazepam 0.5 MG in SYRINGE 0.25 ML IV ONE (00:10)
[2023-06-18 06:23] LABS: Basophils # (auto) 0.03 K/uL (0.00-0.20); Basophils % (auto) 0.4 %; Eosinophils # (auto) 0.07 K/uL (0.00-0.50); Eosinophils % (auto) 0.9 %; Hematocrit (blood only) 41.9 % (37.0-47.0); Hemoglobin 13.9 g/dl (12.0-16.0); Immature Granulocytes # (auto) 0.02 K/uL (0.01-0.20); Immature Granulocytes % (auto) 0.3 %; Lymphocytes # (auto) 2.84 K/uL (1.20-3.40); Lymphocytes % (auto) 35.5 %; Mean Corpuscular Hemoglobin 28.4 pg (25.0-34.0); Mean Corpuscular Hgb Conc 33.2 g/dL (32.0-36.0); Mean Corpuscular Volume 85.5 fL (80.0-100.0); Mean Platelet Volume 10.6 fL (9.4-12.4); Monocytes # (auto) 0.78 K/uL (0.11-0.59); Monocytes % (auto) 9.8 %; Neutrophils # (auto) 4.26 K/uL (1.40-6.50); Neutrophils % (auto) 53.1 %; Platelet Count 245 K/uL (130-400); RDW Coefficient of Variation 11.7 % (11.5-14.5); RDW Standard Deviation 36.4 fL (36.4-46.3)
[2023-06-18 06:42] LABS: BUN Creatinine Ratio 14.7 (10-20); Calcium 9.5 mg/dl (8.6-10.3); Creatinine Clr Calc Pharmacy 95.9 ml/min; Est GFR (African American) 127.7 ml/min; Est GFR (Non-African American) 110.2 ml/min; Potassium 4.4 mmol/L (3.5-5.1)
--- NOTE | 2023-06-18 11:19 | XCELERA ---
[id number] \\[id number]
--- NOTE | 2023-06-18 19:28 | Discharge Summary ---
Date of Service June 18, 2023 Admission HPI Per Admitting Provider Megan Jurado is a 37 year old female with a PMH significant for heart palpitations who presented to the [facility] ED on 06/16/23 with complaints of recurrent heart palpations and chest tightness. She remained stable while in the ED. Labs were significant for a mag of 1.8, potassium of 3.7, TSH and high sen trop WNL. Chest xray and CT angiogram of the chest were negative for acute findings. Compared to previous ECG's, the patient's ECG today shows a QTc of 689 with new T-wave inversions in the anterior leads. The ED spoke with [facility] who recommended the patient be monitoring on tele overnight for possible runs of torsades. The patient has been followed by [facility] for her recurrent palpitations. She had a holter monitor last week, which she turned back into the Cardiology office but has yet to receive results. Prior to admission the patient was given 500 mL NSS and 1gm IV mag-sulfate. At the time of the exam the patient was sitting in bed in no acute distress with her bedside. Has been experiencing intermittent episodes of heart palpitations over the past 3 weeks, denies a previous history of cardiac disease or abnormalities. States the first occurrence was when they were on Vacation. She states she did have some alcoholic drinks which contained energy drinks. She states, and her confirms that she does not usually drink energy drinks or consumes caffeine regularly. She may have 8 oz of coffee in the morning, she denies using any workup supplements. She does take OTC supplements for her joints. These episodes normally occur when she first wakes in the am, before getting out of bed. She does not typically experience these episodes during exertion and denies symptoms such as lightheadedness, dizziness, chest pain, or syncope. Principal Diagnosis Palpitations and chest heaviness Discharge Exam PHYSICAL EXAMINATION Last 24h vital signs reviewed, see documentation in flowsheet General: comfortable appearing, no distress HEENT: Normocephalic, atraumatic, pupils round and equal, sclerae anicteric, no conjunctival injection, moist mucus membranes Lungs: Normal respiratory effort. tele review: NSR last 24h Abdomen: nondistended. Extremities: Warm, dry, well-perfused. trace extremity edema. Neuro: Alert and oriented x 4, face symmetric, moves 4 extremities well Psych: Normal affect and behavior Discharge Data Allergies Allergy/AdvReac Type Severity Reaction Status Date / Time sulfamethoxazole Allergy Intermediate Unknown Unverified 06/09/23 10:46 [From Bactrim] trimethoprim [From Bactrim] Allergy Intermediate Unknown Unverified 06/09/23 10: 46 Consultations 06/16/23 11:35 ED Decision to Admit Stat 06/16/23 11:41 Consult Cardiology Routine Ordered Studies 06/16/23 09:15 CT angio chest PE protocol Stat Chest X-Ray 06/16/23 09:02 SINGLE VIEW CHEST CLINICAL HISTORY: Atypical chest pain FINDINGS: An AP, portable, upright chest radiograph is compared to study dated 06/09/2023. The cardiomediastinal silhouette is unremarkable. The lungs and pleural spaces are clear. No pneumothorax is seen. The bony thorax is grossly intact. IMPRESSION: No active disease in the chest. ACT 112: Negative or not required by law. Electronically signed by: Gabino Hargrove M.D. 06/16/2023 9:30 AM Chest CTA 06/16/23 09:15 CT ANGIOGRAM OF THE CHEST CLINICAL HISTORY: Atypical chest pain. COMPARISON STUDY: Chest x-ray dated 06/16/2023. TECHNIQUE: Following the IV administration of 58 cc of Optiray 320, CT angiogram of the chest was performed from the upper abdomen to the thoracic inlet utilizing the pulmonary embolus protocol. Images are reviewed in the axial, sagittal, and coronal planes. 3-D MIPS images are created and assessed. IV contrast was administered without complication. A dose lowering technique was utilized adhering to the principles of ALARA. CT DOSE: 414.37 mGy.cm FINDINGS: Thyroid: Imaged portions of the thyroid gland are normal in size and attenuation. Thoracic aorta: The thoracic aorta is normal in caliber and demonstrates s tandard 3-vessel arch anatomy. No dissection is seen. Pulmonary vasculature: The pulmonary trunk is normal in caliber. There are no filling defects identified in main, lobar, or segmental pulmonary branches to suggest pulmonary embolus. Heart: The heart is normal in size and without pericardial effusion. Lungs and pleural spaces: There is no airspace consolidation or pleural effusion. The trachea and central airways are clear. A low suspicion 4 mm pleural-based nodule is seen in the right lower lobe lung fissure on image #85. This is Doppler sonograms. Mediastinum: There is no mediastinal lymphadenopathy. Chanelle: Clear. Axillae: There is no axillary lymphadenopathy. Upper abdomen: Partially visualized upper abdominal viscera is within normal limits. Skeletal structures: No lytic or blastic bony lesions are seen. IMPRESSION: 1. There is no evidence of pulmonary embolus in the main, lobar, or segmental pulmonary arteries. 2. The lungs are clear. ACT 112: Negative or not required by law. Electronically signed by: Gabino Hargrove M.D. 06/16/2023 10:31 AM Hospital Course (1) Palpitations: 37 y/o admitted with recurrent episodes of palpitations and chest heaviness. CTA chest was negative for PE or other pathology she had symptoms night of 06/16 about 2am-3am - sinus tach only on tele during that time period otherwise tele monitoring during this stay was normal Echo was normal, TSH normal Consulted cardiology - Dr. Dumont, recommended PRN metoprolol. He reviewed EKGs and did not think she has QT prolongation or recommend further evaluation/treatment for this. 48-hour Holter completed as outpatient last week - confirmed with [facility] that results are not available, likely available late this week or early next week has f/u with [facility] July 16 has f/u with [facility] on June 18 it is possible she is having episodes of symptomatic sinus tachycardia or another SVT, however, given her reassuring testing and young age this is highly likely benign. consider 30-day event monitor if Holter is unrevealing (2) Chest heaviness: in the end may be 2nd to the sinus tach itself stress echo obtained this admission was normal. Strong family history, but CAD very unlikely at this time. (3) Family history of coronary artery disease: father, PGM, etc (4) Abnormal EKG: diffuse nonspecific T wave changes (flattening) anterior leads and inferior leads see above some concern for QTc prolongation but Dr Dumont has seen and evaluated; QTc is normal length per his evaluation (5) Leukocytosis: Mild elevation of 11.9 in ED no infectious symptoms sed rate/crp wnl no fevers u/a wnl urine HCG neg CTA chest neg for pneumonia -CBC 06/17 with normal WBC of 8, no fevers or other s/sx. Likely stress demargination. Total Time Total Time Spent Total Time Spent (In Minutes): 25 minutes Discharge Plan Discharge Items Patient Disposition: Home - Self-Care Reason For Visit: palpitations Discharge Diagnosis: 1. palpitations; sinus tachycardia seen on monitor during times of palpitations 2. mildly elevated white blood cell count 3. minimally elevated glucose level (102) 4. tiny nodule (4mm) in the right lung lower lobe seen on CT chest - no follow- up needed for this 5. elevated blood pressures - mild - continue to monitor at home Condition on Discharge: Good Activity: Resume your previous activity Non-emergency contact: Primary Care Provider Call non-emergency contact if: you have any medication questions and your symptoms worsen Follow-up/Referrals: Mor Husain DO [Physician] - (Office will call to schedule apt) Eloise Dior DO [Primary Care Provider] - (please see [facility] on Saturday as previously scheduled ) Diet: Regular Addtl Attending Provider Instructions: Mrs Agrawal, Alessio were hospitalized due to palpitations as well as brief chest tightness. Your echocardiogram, blood work for the heart (known as "troponins"), and your heart monitoring were normal. During the time period when you felt palpitations in the middle of the night we noted sinus tachycardia on the monitor. Sinus tachycardia occurs when you have a normal rhythm but the heart rate is fast -- specifically, greater than 100 beats per minute. There are various causes of sinus tachycardia including pain, blood clots of the lungs (your CT scan was negative for this), overactive thyroid gland (your thyroid levels were normal), severe anemia, severe dehydration, anxiety, normal response to exercise, etc. We did not see any abnormal heart rhythms, extra beats, or pauses. A stress echocardiogram test was very normal - this is reassuring that your risk of coronary artery disease is low at this time Dr Flash Dumont from [facility] saw you in consult, looked at your EKGs, and reviewed your heart monitoring. At this time we recommend - 1. continue to monitor your pulse at home either by using your blood pressure cuff 2. follow up as scheduled for the results of the ambulatory (holter) monitor - we called yesterday afternoon and the results aren't available yet 3. you can take metoprolol as needed if you develop prolonged palpitations with elevated heart rate that is bothersome to you 4. follow up as scheuled with your [facility] and with Dr. Husain the outpatient dog hair clipper Pending Studies at Discharge: No Stand-Alone Forms: My [facility] Virtual Command, Smoking Cessation Medications and DC Order Prescriptions: New metoprolol tartrate 25 mg tablet 12.5 mg PO Q12H PRN (Reason: palpitations/tachycardia ) Qty: 14 0RF Continued norgestimate-ethinyl estradiol 0.18/0.215/0.25 mg-35 mcg (28) tablet 1 tab PO HS Discharge Orders: Discharge Order (Routine); Ordered 06/18/23 Ordered By: Nicolle Ovalle/Other Patient Handouts: Metoprolol Oral Tablet, ED Palpitations Admission Data Admit Date/Time: 06/16/23 11:41 Attending Provider: Nicolle Ward Admit Provider: Nicholas Mota Primary Care Provider: Eloise Dior Other Providers: Nicholas Mota; Flash Dumont Other Interventions: Discharge Summary Assessment (RN) Last Done: 06/18/23 13:18 Coding Level of Care Code 52532 IN/OBS DISCH 30 MIN/LESS Diagnoses Palpitations R00.2 Chest heaviness R07.89 Family history of coronary artery disease Z82.49 Abnormal EKG R94.31 Leukocytosis D72.829
--- NOTE | 2023-06-19 12:51 | Electrocardiogram Report ---
Test Reason : Blood Pressure : / mmHG Vent. Rate : 098 BPM Atrial Rate : 098 BPM P-R Int : 126 ms QRS Dur : 068 ms QT Int : 280 ms P-R-T Axes : 078 049 055 degrees QTc Int : 358 ms Normal sinus rhythm Possible Left atrial enlargement T wave abnormality, consider anterior ischemia Abnormal ECG When compared with ECG of 09-JUN-2023 11:51, T wave inversion now evident in Anterior leads Confirmed by Flash Dumont ([id number]) on 06/19/2023 12:51:33 PM Referred By: Confirmed By:Flash Dumont
--- NOTE | 2023-06-20 07:17 | Electrocardiogram Report ---
Test Reason : Blood Pressure : / mmHG Vent. Rate : 090 BPM Atrial Rate : 090 BPM P-R Int : 122 ms QRS Dur : 072 ms QT Int : 350 ms P-R-T Axes : 079 058 030 degrees QTc Int : 428 ms Normal sinus rhythm Possible Left atrial enlargement Nonspecific ST abnormality Abnormal ECG When compared with ECG of 16-JUN-2023 09:02, (unconfirmed) No significant change Confirmed by Flash Dumont ([id number]) on 06/20/2023 7:17:25 AM Referred By: REFERRED SELF Confirmed By:Flash Dumont
--- NOTE | 2023-06-20 07:37 | Electrocardiogram Report ---
Test Reason : Blood Pressure : / mmHG Vent. Rate : 084 BPM Atrial Rate : 084 BPM P-R Int : 134 ms QRS Dur : 074 ms QT Int : 358 ms P-R-T Axes : 080 051 051 degrees QTc Int : 423 ms Normal sinus rhythm Possible Left atrial enlargement Borderline ECG When compared with ECG of 17-JUN-2023 23:44, (unconfirmed) No significant change was found Confirmed by Flash Dumont ([id number]) on 06/20/2023 7:37:24 AM Referred By: REFERRED SELF Confirmed By:Flash Dumont
== END 2023-06-18 14:16 | disposition home or self-care (01) ==
LOC: ED 08:51 → EDINP 08:51 → SUATTDRO 11:41 → 4W 15:05